=== PATIENT | female | born 1955 | race Two or more races ===

== ENCOUNTER 2025-02-16 11:14 | Emergency (ER) | payer MEDICARE, MEDICAID, SELFPAY ==
[2025-02-16 11:32] VITALS: BP 123/81; PULSE 76; RESP 18; TEMP 36.9; O2SAT 95; BMI 32.5
--- NOTE | 2025-02-16 11:44 | EKG_ITS ---
[facility] Test Date: 2025-02-16 Pat Name: STANISLAW BERG Department: Room: - Gender: Female [employer]: : 1955 Requested By: Ortiz Alonso (ADAN) Order Number: [id number] Reading MD: Ortiz Alonso (MALT SPECIFICATIONS CONTROL ASSISTANT) Measurements Intervals [place] Rate: 74 P: 23 [place]: 170 QRS: 38 QRSD: 85 T: 42 QT: 397 QTc: 443 Interpretive Statements SINUS RHYTHM No previous ECG available for comparison /store/S0/[id number].pdf
--- NOTE | 2025-02-16 11:44 | XR_ITS ---
Examination: CT brain head without contrast. 2-D sagittal coronal reconstructions Date and time of exam: February 16, 2025, 1212 hours INDICATIONS: Headaches dizziness today CTDI: vol (mGy): 51.2 DLP: (mGycm): 1030 Technique: Multiple CT axial sections of the brain have been obtained, 5 mm slice thickness. Contrast has not been administered. 2-D sagittal, coronal reconstructions have been obtained Low dose protocols were performed. One or more of the following dose reduction techniques were used; automated exposure control, adjustment of the mA and/or KV according to patient size, use of iterative reconstruction technique. Findings: No significant ventricular enlargement. Intra-axial or extra-axial hemorrhage density is not seen. No mass effect or midline shift Basal cisterns are not remarkable. Fourth ventricle is midline. Cranial vault intact. Impression: Negative for acute hemorrhage, mass effect or midline shift Advise clinical correlation and follow-up accordingly
--- NOTE | 2025-02-16 11:45 | PD.EDRME ---
Rapid Medical Screening Exam RME Arrival date/time: 02/16/25 11:14 69-year-old female who presents to the Emergency Department of complaint of dizziness patient reports history of vertigo Chief Complaint: Dizziness Time Seen by Provider: 02/16/25 12:07 Vital signs: Vital Signs Temperature 98.5 F 02/16/25 11:32 Pulse Rate 76 02/16/25 11:32 Respiratory Rate 18 02/16/25 11:32 Blood Pressure 123/81 02/16/25 11:32 Pulse Oximetry (%) 95 02/16/25 11:32 Oxygen Delivery Method Room Air 02/16/25 11:32 Vital signs reviewed by provider: Yes Exam: On exam patient does not appear ill or toxic in no acute distress Clinical Impression: Lab work imaging obtained
[2025-02-16] MEDS: MECLIZINE HCL 25 MG TABLET 50 MG PO (11:48)
[2025-02-16 12:19] LABS: Basophils # (Auto) 0.0 Thou/mm3 (0.0-0.2); Basophils % (Auto) 1 % (0-2.5); Eosinophils # (Auto) 0.2 Thou/mm3 (0.0-0.5); Eosinophils % (Auto) 3 % (0-10); Hematocrit 43.9 % (36.0-46.0); Hemoglobin 14.4 g/dL (12.0-16.0); Immature Granulocytes Auto 0.02 Thou/mm3 (0.00-0.00); Lymphocytes # (Auto) 1.7 Thou/mm3 (1.0-4.8); Lymphocytes % (Auto) 26 % (10-50); Mean Corpuscular HGB Conc 32.8 g/dl (31.0-37.0); Mean Corpuscular Hemoglobin 30.0 pg (25.0-35.0); Mean Corpuscular Volume 92 fL (80-100); Monocytes # (Auto) 0.4 Thou/mm3 (0.0-0.8); Monocytes % (Auto) 6 % (0-12); Neutrophils # (Auto) 4.1 Thou/mm3 (1.8-7.7); Neutrophils % (Auto) 64 % (37-80); Nucleated Red Blood Cell # 0.00 Thou/mm3 (0.00-0.00); Nucleated Red Blood Cell % 0 /100 WBC (0); Platelet Count 347 Thou/mm3 (140-440); RDW Standard Deviation 46.5 fL (36.4-46.3); Red Blood Count 4.80 Miln/mm3 (4.00-5.20); White Blood Count 6.3 Thou/mm3 (3.6-11.0)
[2025-02-16 12:30] LABS: Collection Type, Urine Clean Catch
[2025-02-16 12:38] LABS: Bilirubin,Urine Negative (Negative); Blood,Urine Negative (Negative); Clarity,Urine Clear (Clear/Hazy); Color,Urine Lt-Yellow (Lt Yel-Yel); Culture Indicated,Urine Not Indicated; Glucose, Urine Negative (Negative); Hyaline Casts,Urine < 1 /hpf (0-1); Ketones,Urine Negative (Negative); Leukocyte Esterase,Urine Positive (Negative); Nitrite,Urine Negative (Negative); PH,Urine 6.5 (5.0-7.0); Protein,Urine Negative (Neg - Trace); RBC,Urine 2 /hpf (0-3); Specific Gravity,Urine 1.020 (1.001-1.035); Squamous Epithelial Cell,Urine 2 /hpf (0-5); Urobilinogen,Urine Negative mg/dL (0.0-1.0); WBC,Urine 3 /hpf (0-5)
[2025-02-16 12:55] LABS: Alanine Aminotransferase 35 U/L (10-49); Albumin, Serum 4.4 gm/dL (3.4-4.8); Albumin/Globulin Ratio 1.4 (1.2-2.2); Alkaline Phosphatase 89 U/L (46-116); Anion Gap 6 (7-16); Aspartate Amino Transferase 28 U/L (0-34); BUN/Creatinine Ratio 14 Ratio (12-20); Bilirubin,Total 0.8 mg/dL (0.3-1.2); Blood Urea Nitrogen 11 mg/dL (9-23); Calcium 9.0 mg/dL (8.3-10.6); Calcium (Corrected) 9.0 mg/dL (8.5-10.1); Carbon Dioxide 27.8 mMol/L (20.0-31.0); Chloride 107 mMol/L (98-107); Creatinine (Component) 0.8 mg/dL (0.6-1.3); Estimated Creatinine Clearance 72.5 mL/min (>60); Globulin 3.2 gm/dL (2.3-3.5); Glucose 113 mg/dL (74-106); Magnesium 1.9 mg/dL (1.6-2.6); Osmolality,Calculated 281 (275-295); Potassium 4.4 mMol/L (3.4-5.1); Sodium 141 mMol/L (136-145); Total Protein 7.6 gm/dL (5.7-8.2); Troponin I < 0.020 ng/mL (0.0-0.045); eGFR > 60 See Note
--- NOTE | 2025-02-16 13:08 | EDNOTE_ITS ---
ED Dizzyness RME/HPI General Chief Complaint: Dizziness Stated Complaint: SEVERE DIZZINESS, N/V Time Seen by Provider: 02/16/25 12:07 Arrival date/time: 02/16/25 11:14 RME / HPI RME / HPI Narrative: DR. SKINNER MAIN ED EVALUATION: Patient with recent Hx of trauma induced vertigo now presents with vertigo onset 2 days [employer], worse with head rotation, and associated nausea, vomiting, and noted disequilibrium. Symptoms tend to wilmer when patient is at rest with mild shortness of breath. Patient does report recent cough, cold and congestion symptoms. PMH: Vertigo, Hypoglycemia, Migraine EWING, Migraine, Head Trauma, Hypertension, Asthma, Diabetes Mellitus Type 2 PSH: Non-contributory Allergies: NKDA Social: Occasional alcohol, No tobacco or illicit drug abuse Exam: On exam patient does not appear ill or toxic in no acute distress Impression: Lab work imaging obtained Related Data Home Medications ?Medication ?Instructions ?Recorded ?Confirmed sumatriptan succinate 50 mg tablet 50 mg PO Q2HR PRN H EADACHE 06/01/16 09/22/18 (Imitrex) (MIGRAINE) #0 tabs Previous Rx's ?Medication ?Instructions ?Recorded docusate sodium 100 mg capsule 100 mg PO BID #30 caps 06/18/18 (Colace) hydrocodone 5 mg-acetaminophen 325 1 tab PO Q6H PRN pa in #14 tabs 06/18/18 mg tablet (Prosperity) torsemide 20 mg tablet 20 mg PO QDAY #7 tabs acetaminophen 650 mg 650 mg PO Q8H PRN fever or p ain 07/09/22 tablet,extended release #30 tabs cyclobenzaprine 5 mg tablet 5 mg PO Q8H PRN muscle spa sm #15 07/09/22 tabs ibuprofen 600 mg tablet 600 mg PO Q8H PRN fever or p ain 07/09/22 #30 tabs hydrocodone 5 mg-acetaminophen 325 1 tab PO BID PRN pa in #10 tabs 07/11/22 mg tablet azithromycin 250 mg tablet 250 mg PO QDAY 5 days #5 ta bs 02/16/25 (Zithromax Z-Kervin) diazepam 2 mg tablet (Valium) 2 mg PO BID PRN vertigo #14 tabs 02/16/25 meclizine 25 mg tablet (Dramamine 25 mg PO TID dizzyne ss #20 tabs 02/16/25 Less Drowsy) sodium chloride 0.65 % nasal spray 2 spray intranasal QID PRN nasal 02/16/25 aerosol (Mercer Saline) congestion #50 mL Allergies Allergy/AdvReac Type Severity Reaction Status Date / Time banana Allergy Severe THROAT Verified 02/16/25 11:17 SWELLING egg AdvReac Intermediate STOMACH Verified 02/16/25 11:17 PAIN Pork/Porcine Containing AdvReac Intermediate STOMACH Verified 02/16/25 11:17 Products PAIN. SHELLFISH Allergy Intermediate FEVER,RASH Uncoded 02/16/25 11:17 Review of Systems Review of Systems Systems Reviewed: All systems reviewed, normal except as documented Past Medical History Past Medical History NEUROLOGIC: Positive Neurological Disorders, Migraine and Head Trauma CARDIAC: Positive Hypertension RESPIRATORY: Positive Asthma REPRODUCTIVE: Positive Previous Pregnancies ENT: Positive Head Trauma ENDOCRINE: Positive Diabetes Mellitus Type 2 OTHER HISTORY: Positive Chicken Pox, Measles and Mumps Family History FAMILY HISTORY: Positive Family Respiratory Disorders, Family Cardiac Disorders and Family Surgery Surgical History SURGICAL: Positive Tubal Ligation ED Exam Narrative Physical exam: GEN. APPEARANCE: The patient is alert awake oriented X-3 appears apprehensive c/o vertigo, does not look ill/toxic. Patient has good eye contact. Patient is cooperative. VITALS: All vitals were reviewed and the pulse ox is 95%, which is normal according to my interpretation HEENT: Normocephalic, atraumatic and nontender. Pupils are equal and reactive. Nistagmus in horizontal plane. Oral mucosa is moist. Noted tenderness to left maxillary sinus. Leftward component fatigable positive HINTS test. NECK: Supple, nontender, no meningismus, no JVD. There is no thyromegaly and no lymphadenopathy. CHEST: Nontender on palpation no deformity and no crepitus. CARDIOVASCULAR: Heart regular rhythm, no murmur or gallop rub or extra beats. LUNGS: Clear to auscultation bilaterally with symmetrical chest rise. No laboring tachypnea or wheezing. No intercostal subcostal retraction. No rales and no rhonchi. ABDOMEN: Soft, flat, nontender to palpation, no guarding or rebound tenderness. There are no abnormal masses palpated. No pulsatile masses or bruits. Active and normal bowel sounds. EXTREMITIES: Normal inspection and palpation. No edema. No cyanosis. Patient is able to move all 4 extremities well SKIN: Warm and dry, no rashes noted. MUSCULOSKELETAL: No lumbar or midline bony tenderness. There is no CVA tenderness. No paraspinal muscle spasm or tenderness. NEURO: Cranial nerves II through XII grossly intact. There are no focal neurologic deficits noted. GCS is 15. Normal vaqaui-st-zzee. Gait appears unsteady. PSYCHIATRIC: Patient is in normal mood and affect, cooperative. LYMPHATICS: No major lymphadenopathy noted. Course Quality Measures none Orders Category Date Time Status EKG (ED ONLY) *Do not use* NOW Care 02/16/25 11:[address] head/brain wo con Stat Exams 02/16/25 11:44 Completed EKG (ED Only) Stat Exams 02/16/25 11:44 Draft CBC Stat Lab 02/16/25 12:04 Completed Comprehensive Metabolic Panel Stat Lab 02/16/25 12:04 Completed Magnesium Stat Lab 02/16/25 12:04 Completed Troponin I Stat Lab 02/16/25 12:04 Completed Urinalysis, C/S if Indicated Stat Lab 02/16/25 12:23 Completed Meclizine HCl [Antivert] Med 02/16/25 11:44 Discontinued 50 mg PO X1 ONE Metoclopramide Inj [Reglan Inj] Med 02/16/25 12:53 Discontinued 10 mg IM X1 ONE Vital Signs Vital signs: Vital Signs Temperature 98.5 F 02/16/25 11:32 Pulse Rate 76 02/16/25 11:32 Respiratory Rate 18 02/16/25 11:32 Blood Pressure 123/81 02/16/25 11:32 Pulse Oximetry (%) 95 02/16/25 11:32 Oxygen Delivery Method Room Air 02/16/25 11:32 Dizziness MDM Narrative MDM Narrative:: Scribe Attestation: Debbie Villalobos am scribing for and in the presence of Dr. Lees. Provider Notation: Although this document has been carefully reviewed, there may still be some phonetic and other typographical errors. These errors are purely grammatical due to imperfections in the software program and should not be construed in any way to compromise the substance of the patient's medical care during this visit. Patient with recent Hx of trauma induced vertigo now presents with vertigo onset 2 days [employer], worse with head rotation, and associated nausea, vomiting, and noted disequilibrium. Symptoms tend to wilmer when patient is at rest with mild shortness of breath. Please see PE findings. Laboratory markers, including CBC, serum chemistries, and UA were essentially unremarkable. Head/Brain CT was unremarkable. EKG without acute process. Patient was treated with Reglan IM and Antivert with mild to moderate improvement. Presentation highly suggestive of peripheral vertigo, likely secondary to sinusitis. Patient will be treated for URI/Sinusitis. Will place on ABX, Dramamine, and Diazepam as vestibulosuppressant. Patient data External records reviewed:: [facility] previous records (Reviewed prior ED records from 07/20/22. Patient was seen for Allergic reaction.) Clinical information provided by:: patient Social determinants that could affect healthcare access:: none Patient has the following chronic illnesses:: Migraine, Head Trauma, Hypertension, Asthma, Diabetes Mellitus Type 2 How is presenting disease/condition affected by chronic disease/condition?: exacerbated by Evaluation data The following diagnostics were reviewed and interpreted by me:: lab results, radiology exam(s) and EKG tracing(s) (EKG at 11:51 shows normal sinus rhythm at 74, normal axis, no ectopy, no signs of acute ischemia, per my interpretation.) Lab and/or radiology exams considered but not ordered:: None Interpretation Summary: RADIOLOGY Head/Brain CT: Findings: No significant ventricular enlargement. Intra-axial or extra-axial hemorrhage density is not seen. No mass effect or midline shift Basal cisterns are not remarkable. Fourth ventricle is midline. Cranial vault intact. Impression: Negative for acute hemorrhage, mass effect or midline shift Advise clinical correlation and follow-up accordingly Medications / Prescriptions Medications or Prescriptions considered but not ordered:: None Medication administrations:: Medication Administration History Discontinued Medications Meclizine HCl (Meclizine Hcl 25 Mg Tablet) 50 mg PO X1 ONE Stop: 02/16/25 11:45 Last Admin: 02/16/25 11:48 Dose: 50 mg Documented By: MATTI Metoclopramide HCl (Metoclopramide Inj 5 Mg/Ml Vial 2 Ml) 10 mg IM X1 ONE; Protocol Stop: 02/16/25 12:54 Last Admin: 02/16/25 13:16 Dose: 10 mg Documented By: MATTI See above if any Consultations Consultation(s) initiated? (list below): No Diagnosis Dizziness Differential Diagnosis: benign paroxysmal positional vertigo, orthostatic hypotension, vertebral basilar insufficiency, acute vestibular neuronitis and transient cerebral ischemia Most likely diagnosis given after review of the tests above:: Acute vestibular neuronitis, Left maxillary sinusitis Admission Indicated Admission indicated?: not indicated Explain why admission is indicated or not indicated:: Patient does not meet admission criteria Admission Request Was there a request for admission?: No Disposition Plan Disposition Plan: Discharge Discharge Attestation Discharge Attestation: The patient and all family members were given an opportunity to ask questions and understood the discharge instructions. Discharge instructions specifically effects, indications for sooner follow up or return to the emergency department, and the expected course of current diagnosis. Patient condition: Stable Discharge Plan Plan Patient Disposition: HOME (Self Care) Discharge Disposition comment: Stable Prescriptions/Referrals Prescriptions/Med Rec: New meclizine [Dramamine Less Drowsy] 25 mg tablet 25 mg PO TID Qty: 20 0RF diazepam [Valium] 2 mg tablet 2 mg PO BID PRN (Reason: vertigo) Qty: 14 0RF azithromycin [Zithromax Z-Kervin] 250 mg tablet 250 mg PO QDAY 5 Days Qty: 5 0RF Mercer Saline 0.65 % aerosol,spray 2 spray intranasal QID PRN (Reason: nasal congestion) Qty: 50 0RF No Action sumatriptan succinate [Imitrex] 50 MG tablet 50 mg PO Q2HR PRN (Reason: HEADACHE (MIGRAINE)) Qty: 0 docusate sodium [Colace] 100 mg capsule 100 mg PO BID Qty: 30 0RF hydrocodone-acetaminophen [Prosperity] 5-325 mg tablet 1 tab PO Q6H MDD 4 PRN (Reason: pain) Qty: 14 0RF torsemide 20 mg tablet 20 mg PO QDAY Qty: 7 0RF acetaminophen 650 mg tablet extended release 650 mg PO Q8H PRN (Reason: fever or pain) Qty: 30 0RF Rx Instructions: swallow whole; do not chew/break/dissolve/open ibuprofen 600 mg tablet 600 mg PO Q8H PRN (Reason: fever or pain) Qty: 30 0RF cyclobenzaprine 5 mg tablet 5 mg PO Q8H PRN (Reason: muscle spasm) Qty: 15 0RF hydrocodone-acetaminophen 5-325 mg tablet 1 tab PO BID MDD 10 PRN (Reason: pain) Qty: 10 0RF Referrals: Mk Ballesteros MD [Primary Care Provider, Family Practice] - In 1 week Problem List Clinical Impression: Acute vestibular neuronitis, Left maxillary sinusitis Impression comment: Acute vestibular neuritis/left maxillary sinusitis Patient/Caregiver Discharge Instructions Education Materials: Dizziness Fainting Ch, ED Sinusitis (Antibiotic Treatment) Additional Instructions: Avoid abrupt movements. Medications as directed. Use Dramamine initially and low-dose Valium primarily prior to sleep. Follow-up with primary care in 7 to 10 days return if worsening. Print Language: Eritrean Stand Alone Forms: Marli Award Info., Patient Portal Info Letter
[2025-02-16] MEDS: METOCLOPRAMIDE INJ 5 MG/ML VIAL 2 ML 10 MG IM (13:16)
[2025-02-16 14:17] VITALS: BP 120/81; PULSE 74; RESP 18; TEMP 36.9; O2SAT 97
== END 2025-02-16 14:17 | disposition home or self-care (01) ==
PROVIDERS: Nurse Practitioner Primary Care; Emergency Provider Emergency Medicine; PCP Family Medicine
DX: H81.20 Vestibular neuronitis, unspecified ear (principal); J32.0 Chronic maxillary sinusitis; I10 Essential (primary) hypertension
CPT/HCPCS: 36415; 70450; 80053; 81001; 83735; 84484; 85025; 93005; 96372; 99283; J2765; A9270